=== PATIENT | male | born 1955 | race Caucasian/White ===

== ENCOUNTER 2021-09-28 12:17 | Outpatient (RCR) | payer MEDICARE, SELFPAY ==
[2021-09-28] MEDS: SODIUM CHLORIDE 0.9 % (FLUSH) 10 ML SYRINGE IVF (12:53)
[2021-09-28 13:09] LABS: Creatinine* 1.3 mg/dL (0.5-1.5); Est. Creatinine Clearance* 47.31; Estimated Glomerular Filt Rate 60 ml/min
== END 2022-03-27 23:59 | disposition home or self-care (01) ==
LOC: CCIC 12:17
PROVIDERS: PCP Family Medicine; Visit Provider Radiology Radiation Oncology
DX: C15.5 Malignant neoplasm of lower third of esophagus (principal)
CPT/HCPCS: 36415; 36592; 82565